=== PATIENT | female | born 1980 | race Caucasian/White ===

== ENCOUNTER 2019-03-21 17:25 | Emergency (ER) | payer OTHER ==
[~2019-03-21] VITALS: Ht 160 cm; Wt 68.0 kg
[2019-03-21] MEDS ORDERED: PRENATABS FA T1 EACH (17:29)
== END 2019-03-21 21:54 | disposition home or self-care (01) ==
LOC: ER 17:25
DX: O20.0 Threatened abortion (principal); O26.891 Other specified pregnancy related conditions, first trimester; K59.09 Other constipation; Z34.01 Encounter for supervision of normal first pregnancy, first trimester

== ENCOUNTER → 2019-04-17 | Outpatient (CLI) | payer OTHER ==
[~2019-04-17] MED LIST: PRENATABS FA T1 EACH
== END | disposition home or self-care (01) ==
LOC: PRENATAL 10:00
DX: O35.0XX1 Maternal care for (suspected) central nervous system malformation in fetus, fetus 1 (principal); O99.89 Other specified diseases and conditions complicating pregnancy, childbirth and the puerperium; O09.522 Supervision of elderly multigravida, second trimester; O34.42 Maternal care for other abnormalities of cervix, second trimester; O26.842 Uterine size-date discrepancy, second trimester

== ENCOUNTER → 2019-05-18 | Outpatient (CLI) | payer OTHER | END | disposition home or self-care (01) | LOC: PRENATAL 05-15 08:00 | DX: O35.3XX1 Maternal care for (suspected) damage to fetus from viral disease in mother, fetus 1 (principal); O09.522 Supervision of elderly multigravida, second trimester; O34.42 Maternal care for other abnormalities of cervix, second trimester; O10.012 Pre-existing essential hypertension complicating pregnancy, second trimester; O99.89 Other specified diseases and conditions complicating pregnancy, childbirth and the puerperium; Z3A.19 19 weeks gestation of pregnancy; O65.5 Obstructed labor due to abnormality of maternal pelvic organs ==

== ENCOUNTER → 2019-06-22 | Outpatient (CLI) | payer OTHER | END | disposition home or self-care (01) | LOC: PRENATAL 13:22 | DX: O26.842 Uterine size-date discrepancy, second trimester (principal); O34.42 Maternal care for other abnormalities of cervix, second trimester; O10.012 Pre-existing essential hypertension complicating pregnancy, second trimester ==

== ENCOUNTER → 2019-08-13 | Outpatient (CLI) | payer OTHER | END | disposition home or self-care (01) | LOC: PRENATAL 13:00 | DX: O26.843 Uterine size-date discrepancy, third trimester (principal); O10.013 Pre-existing essential hypertension complicating pregnancy, third trimester; O99.89 Other specified diseases and conditions complicating pregnancy, childbirth and the puerperium; O34.211 Maternal care for low transverse scar from previous cesarean delivery ==

== ENCOUNTER → 2019-09-19 | Outpatient (CLI) | payer OTHER | END | disposition home or self-care (01) | LOC: PRENATAL 10:00 | DX: O26.843 Uterine size-date discrepancy, third trimester (principal); O36.8131 Decreased fetal movements, third trimester, fetus 1; O24.410 Gestational diabetes mellitus in pregnancy, diet controlled; O99.89 Other specified diseases and conditions complicating pregnancy, childbirth and the puerperium; Z36.89 Encounter for other specified antenatal screening ==

== ENCOUNTER 2019-09-28 09:45 | Inpatient (IN) | payer OTHER ==
[~2019-09-28] VITALS: Ht 160 cm; Wt 2.7 kg
== END 2019-10-06 15:02 | disposition home or self-care (01) | DRG 785 ==
LOC: OB/GYN 10-03 09:37 → O/R 10-03 09:37 → OB/GYN 10-03 09:45
PROVIDERS: ADMIT Obstetrics & Gynecology; ATTEND Obstetrics & Gynecology
PROC: 0UB70ZZ Excision of Bilateral Fallopian Tubes, Open Approach (ICD-10-PCS; 2019-10-03)
PROC: 4A1HXFZ Monitoring of Products of Conception, Cardiac Rhythm, External Approach (ICD-10-PCS; 2019-10-03)
PROC: 3E033VJ Introduction of Other Hormone into Peripheral Vein, Percutaneous Approach (ICD-10-PCS; 2019-10-03)
PROC: 10D00Z1 Extraction of Products of Conception, Low, Open Approach (ICD-10-PCS; principal; 2019-10-03 13:30)
DX: O34.211 Maternal care for low transverse scar from previous cesarean delivery (principal); Z3A.39 39 weeks gestation of pregnancy; Z37.0 Single live birth; Z30.2 Encounter for sterilization

== ENCOUNTER 2020-02-06 11:11 | Emergency (ER) | payer OTHER ==
[~2020-02-06] VITALS: Ht 160 cm; Wt 63.0 kg
[2020-02-06] MEDS ORDERED: ZITHROMAX500 MG PO (13:27)
== END 2020-02-06 13:49 | disposition home or self-care (01) ==
LOC: ER 11:11
DX: B34.9 Viral infection, unspecified (principal); B96.0 Mycoplasma pneumoniae [M. pneumoniae] as the cause of diseases classified elsewhere; Z03.818 Encounter for observation for suspected exposure to other biological agents ruled out

== ENCOUNTER 2020-05-13 11:12 | Outpatient (CLI) | payer OTHER ==
[~2020-05-13 11:12] MED LIST changes: +ZITHROMAX500 MG PO
== END 2020-05-13 11:28 | disposition home or self-care (01) ==
LOC: LAB 11:12
PROVIDERS: ATTEND Pediatrics
DX: Z20.828 Contact with and (suspected) exposure to other viral communicable diseases (principal); J45.998 Other asthma; Z00.00 Encounter for general adult medical examination without abnormal findings

== ENCOUNTER 2020-12-31 09:44 | Outpatient (CLI) | payer OTHER | END 2020-12-31 09:49 | disposition home or self-care (01) | LOC: NUCLEAR 09:44 | PROVIDERS: ATTEND Internal Medicine Rheumatology | DX: M13.0 Polyarthritis, unspecified (principal) | CPT/HCPCS: 78315; A9503 ==

== ENCOUNTER 2021-02-12 08:17 | Outpatient (CLI) | payer OTHER | END 2021-02-12 08:29 | disposition home or self-care (01) | LOC: SONOGRAMA 08:17 | PROVIDERS: ATTEND Internal Medicine Gastroenterology | DX: R10.84 Generalized abdominal pain (principal) ==

== ENCOUNTER 2021-03-06 08:04 | Outpatient (CLI) | payer OTHER | END 2021-03-06 08:11 | disposition home or self-care (01) | LOC: SONOGRAMA 08:04 → MAMO-SONO 08:15 | PROVIDERS: ATTEND Pediatrics | DX: N83.291 Other ovarian cyst, right side (principal); R10.84 Generalized abdominal pain ==

== ENCOUNTER 2021-06-22 07:56 | Outpatient (CLI) | payer OTHER | END 2021-06-22 08:07 | disposition home or self-care (01) | LOC: MAMO-SONO 07:56 | PROVIDERS: ATTEND Obstetrics & Gynecology | DX: N60.19 Diffuse cystic mastopathy of unspecified breast (principal); Z12.31 Encounter for screening mammogram for malignant neoplasm of breast ==

== ENCOUNTER 2022-02-24 08:39 | Outpatient (CLI) | payer OTHER | END 2022-02-24 08:44 | disposition home or self-care (01) | LOC: MAMO-SONO 08:39 | PROVIDERS: ATTEND Surgery Surgical Oncology | DX: N60.11 Diffuse cystic mastopathy of right breast (principal); N60.12 Diffuse cystic mastopathy of left breast; D48.62 Neoplasm of uncertain behavior of left breast ==

== ENCOUNTER 2022-07-15 15:20 | Outpatient (CLI) | payer OTHER | END 2022-07-15 15:29 | disposition home or self-care (01) | LOC: RAD 15:20 | PROVIDERS: ATTEND General Practice | DX: R06.02 Shortness of breath (principal); R13.19 Other dysphagia ==

== ENCOUNTER 2022-08-10 09:14 | Emergency (ER) | payer OTHER ==
[~2022-08-10] VITALS: Ht 160 cm; Wt 63.5 kg
== END 2022-08-10 13:02 | disposition home or self-care (01) ==
LOC: ER 09:14
DX: K29.70 Gastritis, unspecified, without bleeding (principal); K76.89 Other specified diseases of liver; Z88.6 Allergy status to analgesic agent; Z88.8 Allergy status to other drugs, medicaments and biological substances

== ENCOUNTER 2023-03-09 08:58 | Outpatient (CLI) | payer OTHER | END 2023-03-09 09:10 | disposition home or self-care (01) | LOC: MAMO-SONO 08:58 | PROVIDERS: ATTEND Obstetrics & Gynecology | DX: N63.22 Unspecified lump in the left breast, upper inner quadrant (principal); N63.21 Unspecified lump in the left breast, upper outer quadrant; Z12.31 Encounter for screening mammogram for malignant neoplasm of breast ==

== ENCOUNTER 2023-11-17 09:27 | Outpatient (CLI) | payer OTHER | END 2023-11-17 09:38 | disposition home or self-care (01) | LOC: SONOGRAMA 09:27 | PROVIDERS: ATTEND General Practice | DX: R10.9 Unspecified abdominal pain (principal) ==

== ENCOUNTER 2024-02-15 08:46 | Emergency (ER) | payer OTHER ==
[~2024-02-15] VITALS: Ht 160 cm; Wt 68.0 kg
[2024-02-15 10:42] LABS: HEMATOCRIT 40.9 % (36.0-45.00); HEMOGLOBIN 13.6 g/dL (12.0-15.00); MEAN CELL VOLUME 85.6 fL (80.00-100.00); MEAN CORPUSCULAR HEMOGLOBIN 28.5 pg (27.00-32.0); MEAN CORPUSCULAR HGB CONC 33.3 g/dl (32.0-36.0); PLATELET COUNT 311 K/uL (150-450); RED BLOOD COUNT 4.77 M/uL (4.00-6.00); RED CELL DISTRIBUTION WIDTH 14.8 % (11.5-14.5)
[2024-02-15] MEDS ORDERED: HYDROCORTISONE ACETATE 25 MG/SUPP.RECT SUPP.RECT RECTAL STA (11:08)
[2024-02-15 11:57] LABS: CALCIUM 9.3 mg/dL (8.5-10.1); CREATININE SERUM 0.85 mg/dL (0.55-1.02); POTASSIUM 4.03 mEq/L (3.5-5.1)
== END 2024-02-15 12:05 | disposition home or self-care (01) ==
LOC: ER 08:48
PROVIDERS: General Practice
DX: K62.5 Hemorrhage of anus and rectum (principal); K64.8 Other hemorrhoids; K59.00 Constipation, unspecified; Z88.6 Allergy status to analgesic agent

== ENCOUNTER 2024-03-28 09:28 | Outpatient (CLI) | payer OTHER | END 2024-03-28 09:34 | disposition home or self-care (01) | LOC: MAMO-SONO 09:28 | PROVIDERS: ATTEND Surgery | DX: N63.21 Unspecified lump in the left breast, upper outer quadrant (principal) ==

== ENCOUNTER 2024-05-03 15:16 | Outpatient (CLI) | payer OTHER | END 2024-05-03 15:21 | disposition home or self-care (01) | LOC: SONOGRAMA 15:16 | PROVIDERS: ATTEND Personal Emergency Response Attendant | DX: N63 Unspecified lump in breast (principal) ==

== ENCOUNTER → 2025-02-14 | Outpatient (CLI) | payer OTHER | END | disposition home or self-care (01) | LOC: SONOGRAMA 08:42 | PROVIDERS: ATTEND Personal Emergency Response Attendant | DX: R10.9 Unspecified abdominal pain (principal) ==

== ENCOUNTER 2025-04-04 08:41 | Outpatient (CLI) | payer OTHER | END 2025-04-04 08:53 | disposition home or self-care (01) | LOC: MAMO-SONO 08:41 | PROVIDERS: ATTEND Personal Emergency Response Attendant | DX: Z12.39 Encounter for other screening for malignant neoplasm of breast (principal); Z12.31 Encounter for screening mammogram for malignant neoplasm of breast ==